=== PATIENT | female | born 1990 | race Caucasian/White ===

== ENCOUNTER 2017-05-20 08:21 | Emergency (ER) | payer BC, OTHER ==
[2017-05-20] MEDS ORDERED: Pantoprazole 40 MG Vial IVPUSH ONE (08:38)
[2017-05-20] MEDS ORDERED: Ondansetron 4 MG/2 ML SDV IVPUSH ONE (08:38)
[2017-05-20] MEDS ORDERED: Famotidine 20 MG/2 ML SDV IVPUSH ONE (08:38)
--- NOTE | 2017-05-20 08:38 | EDM.PDOC ---
ED HPI GENERAL MEDICAL PROBLEM - General Chief Complaint: Abdominal Pain Stated Complaint: right side abdominal pain Time Seen by Provider: 05/20/17 08:30 Source of Information: Reports: Patient, Old Records ([facility] EMR. No paper hospital chart available.) History Limitations: Reports: No Limitations - History of Present Illness INITIAL COMMENTS - FREE TEXT/NARRATIVE: Patient drove herself to the emergency room via private automobile for evaluation of 10/10 sharp right lower quadrant abdominal pain associated with mild very occasional brief dizziness and some anorexia with symptoms starting at about 14:00 hours yesterday afternoon. She did take 400 mg of ibuprofen at about 2 AM this morning with no other medications to this point. She did not take her morning medications with no previous similar type symptoms. The patient does have problems with chronic constipation with normal bowel movement about 2 days ago. Her last solid food intake was at supper yesterday at 6 PM with patient drinking 2 glasses of water during the night. She denies any colic , hematuria, or other UTI symptoms.The patient also denies any recent fever, cough, wheezing, dyspnea, etc.. No recent history of other abdominal pain, heartburn, nausea, diarrhea, melena, gross hematochezia, or any food intolerance , including fatty foods, etc.. Onset: Gradual Onset Date: 05/19/17 Onset Time: 14:00 Duration: Constant, Getting Worse Location: Reports: Abdomen. Denies: Head, Face, Neck, Chest, Back, Pelvis, Upper Extremity, Left, Upper Extremity, Right, Lower Extremity, Left, Lower Extremity, Right, Radiates to Quality: Reports: Sharp, Stabbing Severity: Severe Improves with: Reports: Movement Worsens with: Reports: Rest Context: Reports: Other (As above) Associated Symptoms: Reports: Loss of Appetite. Denies: Confusion, Chest Pain, Cough, Diaphoresis, Fever/Chills, Headaches, Malaise, Nausea/Vomiting, Seizure, Shortness of Breath, Syncope, Weakness Treatments LOCK TENDER: Reports: NSAIDS Right Lower Anterior Abdominal Pain Score (Numeric/FACES): 10 - Related Data Allergies Allergy/AdvReac Type Severity Reaction Status Date / Time No Known Allergies Allergy Verified 07/15/16 16:27 Home Meds: Home Meds Lisdexamfetamine [Vyvanse] 1 tab PO DAILY 07/15/16 [History] Ibuprofen 400 mg PO Q6HR 05/20/17 [History] Past Medical History HEENT History: Reports: Allergic Rhinitis. Denies: Glaucoma, Hard of Hearing, Impaired Vision, Macular Degeneration, Retinal Detachment Cardiovascular History: Reports: None. Denies: Afib, Aneurysm, Angina, Arrhythmia, Blood Clots/VTE/DVT, CAD, Heart Murmur, High Cholesterol, Hypertension, Syncope Respiratory History: Reports: None. Denies: Asthma, COPD, Intubation, Previous , PE, Pneumothorax Gastrointestinal History: Reports: Chronic Constipation. Denies: Celiac Disease , Cholelithiasis, Chronic Diarrhea, Fecal Incontinence, Gastritis, GERD, GI Bleed, Hepatitis, Hiatal Hernia, Irritable Bowel Syndrome, Jaundice, Pancreatitis Genitourinary History: Reports: Renal Calculus, Other (See Below). 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 Denies: Dysfunctional Uterine Bleeding, Endometriosis, Spontaneous : 2 Para: 2 (Full term without complications during pregnancies or deliveries) LMP (Approximate): Menstruating (LMP started 05/19/17) Musculoskeletal History: Reports: None. Denies: Amputation, Arthritis, Back Pain, Chronic, Fracture, Fibromyalgia, Gout, Neck Pain, Chronic, Osteoarthritis , RA, SLE Neurological History: Reports: None. Denies: Cerebral Aneurysms, Concussion, CVA, Headaches, Chronic, Head Trauma, Migraines, Seizure, TIA Psychiatric History: Reports: ADD, ADHD. Denies: Addiction, Anxiety, Depression , Psych Hospitalization(s), PTSD, Suicide Attempt, Suicidal Ideation Endocrine/Metabolic History: Reports: None. Denies: Diabetes, Type I, Diabetes , Type II, IDDM Hematologic History: Reports: Anemia, Iron Deficiency. Denies: Blood Transfusion(s) Immunologic History: Reports: None. Denies: AIDS, HIV, SLE Oncologic (Cancer) History: Denies: Basal Cell Carcinoma, Cervix, Hodgkin's Lymphoma, Leukemia, Lymphoma, Malignant Melanoma, Non-Hodgkin's Lymphoma, Squamous Cell Carcinoma Dermatologic History: Reports: None. Denies: Eczema, Psoriasis - Infectious Disease History Infectious Disease History: Reports: Chicken Pox. Denies: C-Difficile, Measles , Meningitis, Mononucleosis, MRSA, Mumps, Pertussis (Whooping Cough), Rubella, Scarlet Fever, Shingles, VRE - Past Surgical History Head Surgeries/Procedures: Reports: None HEENT Surgical History: Reports: Oral Surgery, Other (See Below). Denies: Adenoidectomy, Eye Surgery, Myringotomy w Tube(s), Naso-Sinus Surgery, Tonsillectomy Other HEENT Surgeries/Procedures: [place] teeth extraction 4 in 2011 Cardiovascular Surgical History: Reports: None. Denies: Varicose Respiratory Surgical History: Reports: None. Denies: Thoracentesis GI Surgical History: Reports: None. Denies: Appendectomy, Cholecystectomy, Colonoscopy, EGD, Hernia, Inguinal, Hernia Repair/Other Female Surgical History: Reports: Other (See Below). Denies: D&C, Hysterectomy, Oophorectomy, Salpingo-Oophorectomy, Tubal Ligation Other Female Surgeries/Procedures: IUD placement in about 2009 Endocrine Surgical History: Reports: None. Denies: Thyroid Biopsy Neurological Surgical History: Reports: None. Denies: C-Spine, Discectomy, Laminectomy, Lumbar Spine, Sacral Spine, Spinal Fusion, Vertebroplasty Musculoskeletal Surgical History: Reports: None. 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 Denies: Glaucoma, Macular Degeneration, Retinal Detachment Cardiac: Reports: None. Denies: Afib, Aneurysm, Arrhythmia, Blood Clots/VTE/DVT , CAD, Heart Failure, Heart Murmur, High Cholesterol, Hypertension, Syncope Respiratory: Reports: None. Denies: Asthma, COPD, PE, Pneumothorax, Sleep Apnea GI: Reports: None. Denies: Celiac Disease, Cholelithiasis, Colon Polyps, Diverticulosis, GERD, GI bleed, Inflammatory Bowel Disease, Irritable Bowel Syndrome, Pancreatitis, PUD : Reports: None. Denies: Renal Calculus, Renal Disease/Insufficiency OBGYN: Reports: None. Denies: Dysfunctional uterine bleeding, Endometriosis, Fibroids, Recurrent Spontaneous Musculoskeletal: Reports: None. Denies: Arthritis, Gout, Osteoarthritis, RA, SLE Neurological: Reports: None. Denies: Alzheimers Disease, Cerebral Aneurysms, CVA, Dementia, Migraines, MS, Parkinson's, Seizure, TIA Psychiatric: Reports: Anxiety, Depression, Other (See Below). Denies: Abuse, Victim of, ADD, ADHD, Psych Hospitalization(s), PTSD, Suicide Attempt Other Psychiatric Family History: Mother with anxiety depression disorder Endocrine/Metabolic: Denies: Diabetes, Type I, Diabetes, type II, Diabetes Mellitus, Type 3c, Hypothyroidism, IDDM Hematologic: Reports: Anemia, Other (See Below). Denies: SLE Other Hematologic Family History: Mother with iron deficiency anemia Immunologic: Reports: None. Denies: AIDS, HIV, SLE Dermatologic: Reports: Eczema, Seborrheic Dermatitis. Denies: Angiodema, Psoriasis Other Dermatologic Family History: Brother with eczema and seborrheic dermatitis Oncologic: Reports: None. Denies: Breast, Colon, Hodgkin's Lymphoma, Leukemia, Lymphoma, Non-Hodgkin's Lymphoma, Ovarian, Skin, Uterine Other Family History: Note the patient's parents are adopted with otherwise limited history - Tobacco Use Smoking Status *Q: Never Smoker Smoking Cessation Information Provided To Patient: No Second Hand Smoke Exposure: No Second Hand Smoke Education Provided: No - Caffeine Use Caffeine Use: Reports: Coffee (2 cups per day), Energy Drinks (1 can per day), Soda (2 sodas per week and). Denies: Tea - Alcohol Use Alcohol Use History: Yes Days Per Week of Alcohol Use: 2 (No previous DWIs, problems with alcohol abuse, etc.) Number of Drinks Per Day: 5 (Usually beer) Total Drinks Per Week: 10 Alcohol Use in Last Twelve Months: Yes Alcohol Use Frequency: Socially - Recreational Drug Use Recreational Drug Use: No Drug Use in Last 12 Months: No Recreational Drug Type: Denies: Amphetamines (Speed), Cocaine, Heroin, Inhalants (Glues, Solvents, Aerosols), LSD (Acid), Marijuana/Hashish, Methamphetamine, Morphine - Living Situation & Occupation Living situation: Reports: (2012, 2 children), with Family ( and 2 children) 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 Denies: Fever, Chills, Malaise, Weakness, Fatigue, Night Sweats, Diaphoresis, Weight Loss, Weight Gain HEENT: Reports: No Symptoms. Denies: Contact Lenses, Dental Pain, Ear Pain, Eye Pain, Glasses, Hearing Loss, Rhinitis, Sinus Problem, Throat Pain, Vertigo, Vision Change Respiratory: Reports: No Symptoms. Denies: Shortness of Breath, Pleuritic Chest Pain, Cough Cardiovascular: Reports: No Symptoms, Lightheadedness. Denies: Chest Pain, Blood Pressure Problem, Dyspnea on Exertion, Edema, Orthopnea, Palpitations, Syncope Endocrine: Reports: No Symptoms. Denies: Fatigue GI/Abdominal: Reports: Abdominal Pain, Anorexia, Decreased Appetite. Denies: Black Stool, Bloody Stool, Constipation, Diarrhea, Difficulty Swallowing, Distension, Flatus, Hematemesis, Hematochezia, Melena, Nausea, Stool Incontinence, Vomiting : Reports: No Symptoms. Denies: Discharge, Dysuria, Flank Pain, Frequency, Hematuria, Incontinence, Irregular Menses, Pain, Urgency, Urinary Retention Musculoskeletal: Reports: No Symptoms. Denies: Neck Pain, Shoulder Pain, Arm Pain, Back Pain, Leg Pain Skin: Reports: No Symptoms. Denies: Jaundice, Diaphoresis, Bruising, Pruritis, Rash, Wound Neurological: Reports: No Symptoms. Denies: Confusion, Dizziness, Headache, Numbness, Paresthesia, Seizure, Tingling, Weakness Psychiatric: Reports: No Symptoms. Denies: Agitation, Anxiety, Depression Hematologic/Lymphatic: Reports: No Symptoms Immunologic: Reports: No Symptoms ED EXAM, GI/ABD - Physical Exam Exam: See Below Exam Limited By: No Limitations General Appearance: Alert, WD/WN, No Apparent Distress Eyes: Bilateral: Normal Appearance (No Nystagmus), EOMI (PERRLA) Ears: Normal External Exam, Normal Canal, Hearing Grossly Normal, Normal TMs Nose: Normal Inspection, Normal Mucosa, No Blood Throat/Mouth: Normal Inspection, Normal Lips, Normal Teeth, Normal Gums, Normal Oropharynx, Normal Voice, No Airway Compromise. No: Dysphagia, Perioral Cyanosis Head: Atraumatic, Normocephalic. No: Facial Tenderness, Sinus Tenderness Neck: Normal Inspection, Supple, Non-Tender, Full Range of Motion. No: Lymphadenopathy (L), Lymphadenopathy (R), Thyromegaly Respiratory/Chest: No Respiratory Distress, Lungs Clear, Normal Breath Sounds, No Accessory Muscle Use, Chest Non-Tender. No: Pleural Rub, Retractions Cardiovascular: Normal Peripheral Pulses, Regular Rate, Rhythm, No Edema, No Gallop, No JVD, No Murmur, No Rub. No: Gallop/S3, Gallop/S4, Friction Rub GI/Abdominal Exam: Normal Bowel Sounds, No Organomegaly, No Distention, No Abnormal Bruit, No Mass, Pelvis Stable, Guarding, Rebound (Moderate rebound), Tender (Moderate to severe right lower quadrant palpation) (Female) Exam: Deferred Rectal (Female) Exam: Normal Exam, Normal Rectal Tone, Heme - Stool. No: Black Stool, Bloody Stool, Fecal Impaction, Hemorrhoids, Mass, Tenderness (No Morro space tenderness) Back Exam: Normal Inspection, Full Range of Motion. No: CVA Tenderness (L), CVA Tenderness (R) Extremities: Normal Inspection, Normal Range of Motion, Non-Tender, No Pedal Edema, Normal Capillary Refill. No: Linh's Sign Neurological: Alert, Oriented, CN II-XII Intact, Normal Cognition, Normal Gait, No Motor/Sensory Deficits Psychiatric: Normal Affect, Normal Mood Skin Exam: Warm, Dry, Intact, Normal Color, No Rash, Stud(s) (Periumbilical), Tattoo(s) (Multiple). No: Diaphoretic, Wound/Incision Lymphatic: No Adenopathy Course - Vital Signs Last Recorded V/S: Last Vital Signs Temp 36.9 C 05/20/17 10:30 Pulse 90 05/20/17 11:43 Resp 20 05/20/17 11:43 BP 98/63 05/20/17 11:43 Pulse Ox 96 05/20/17 11:43 Vital Signs - 24 hr 05/20/17 05/20/17 05/20/17 08:21 10:30 11:43 Temperature [ 36.9 C 36.9 C Temporal] Pulse, 110 H 89 90 Peripheral [ Right Pulse Oximetry] Respiratory 20 18 20 Rate Blood Pressure 135/75 110/58 L 98/63 [Right Upper Arm] O2 Sat by Pulse 100 94 L 96 Oximetry - Orders/Labs/Meds Orders: Active Orders 24 hr Category Date Time Status Communication Order [RC] ROUTINE Care 05/20/17 11:57 Active Peripheral IV Care [RC] . DIRECTED Care 05/20/17 08:38 Active Nothing Per Oral Diet [DIET] Diet 05/20/17 Breakfast Active Abdomen Pelvis w Cont [CT] Stat Exams 05/20/17 08:38 Taken CULTURE BLOOD [BC] Stat Lab 05/20/17 08:45 Received CULTURE BLOOD [BC] Stat Lab 05/20/17 08:54 Received CULTURE URINE [RM] Stat Lab 05/20/17 09:55 Received H PYLORI STOOL ANTIGEN [MREF] Urgent Lab 05/20/17 08:38 Uncollected Sodium Chloride 0.9% [Saline Flush] Med 05/20/17 08:38 Active 10 ml FLUSH ASDIRECTED PRN cefTRIAXone [Rocephin] 1 gm Med 05/20/17 08:45 Active Sodium Chloride 0.9% [Normal Saline] 100 ml IV Q12H metroNIDAZOLE/Normal Saline [Flagyl 500 MG in NS 100 ML Med 05/20/17 08:45 Active ] 500 mg Premix Bag 1 bag IV Q8H Blood Culture x2 Reflex Set [OM.PC] Urgent Oth 05/20/17 08:38 Ordered Obtain Past Medical Record [OM.PC] Urgent Oth 05/20/17 08:38 Active Peripheral IV Insertion Adult [OM.PC] Stat Oth 05/20/17 08:38 Ordered Resuscitation Status Stat Resus Stat 05/20/17 08:38 Ordered Medication Orders Ceftriaxone Sodium 1 gm/ (Sodium Chloride) 100 mls @ 200 mls/hr IV Q12H [facility] Last Admin: 05/20/17 09:30 Dose: 200 mls/hr Metronidazole 500 mg/ Premix 100 mls @ 100 mls/hr IV Q8H [facility] Last Admin: 05/20/17 09:30 Dose: 100 mls/hr Sodium Chloride (Saline Flush) 10 ml FLUSH ASDIRECTED PRN PRN Reason: Keep Vein Open Last Admin: 05/20/17 09:11 Dose: 10 ml Admin: 05/20/17 08:56 Dose: 10 ml Labs: Laboratory Tests 05/20/17 05/20/17 05/20/17 Range/Units 08:35 08:35 08:35 WBC 18.5 H (4.0-10.2) K/uL RBC 4.41 (3.77-5.09) M/uL Hgb 14.2 (11.7-15.5) g/dL Hct 41.2 (34.0-46.0) % MCV 93.4 (84.0-98.0) fL MCH 32.2 (28.2-33.3) pg MCHC 34.5 (31.7-36.0) g/dL RDW 12.0 (11.2-14.1) % Plt Count 355 H (150-350) K/uL Neut % (Auto) 78.1 (45.0-80.0) % Lymph % (Auto) 11.5 (10.0-50.0) % Weber % (Auto) 9.5 (2.0-14.0) % Eos % (Auto) 0.7 (0.0-5.0) % Baso % (Auto) 0.2 (0.0-2.0) % Neut # (Auto) 14.47 H (1.40-7.00) K/uL Lymph # (Auto) 2.13 (0.50-3.50) K/uL Weber # (Auto) 1.76 H (0.00-1.00) K/uL Eos # (Auto) 0.13 (0.00-0.50) K/uL Baso # (Auto) 0.03 (0.00-0.20) K/uL PT 10.6 (9.8-11.7) SEC INR 1.0 APTT 28.1 (22.1-29.8) SEC Sodium (136-145) mmol/L Potassium (3.5-5.1) mmol/L Chloride (98-107) mmol/L Carbon Dioxide (21.0-32.0) mmol/L BUN (7-18) mg/dL Creatinine (0.51-1.17) mg/dL Est Cr Clr Drug Dosing mL/min Estimated GFR (MDRD) mL/min Glucose (74-106) mg/dL Lactic Acid (0.4-2.0) mmol/L Uric Acid (2.6-7.2) mg/dL Calcium (8.5-10.1) mg/dL Magnesium (1.8-2.4) mg/dL Total Bilirubin (0.2-1.0) mg/dL Direct Bilirubin (0.0-0.2) mg/dL Indirect Bilirubin AST (15-37) U/L ALT (12-78) U/L Alkaline Phosphatase (46-116) IU/L Total Protein (6.4-8.2) g/dL Albumin (3.4-5.0) g/dL Amylase 48 (25-115) U/L Lipase (73-393) U/L HCG, Qual (NEGATIVE) Specimen Type Urine Color Urine Appearance Urine pH (5.0-9.0) Ur Specific [place] (1.005-1.030) Urine Protein (NEGATIVE) mg/dL Urine Glucose (UA) (NEGATIVE) mg/dL Urine Ketones (NEGATIVE) mg/dL Urine Occult Blood (NEGATIVE) Urine Nitrite (NEGATIVE) Urine Bilirubin (NEGATIVE) Urine Urobilinogen (0.2-1.0) E.U./dL Ur Leukocyte Esterase (NEGATIVE) Urine RBC /HPF Urine WBC /HPF Ur Epithelial Cells /LPF Urine Bacteria (NONE TO FEW) /HPF 05/20/17 05/20/17 05/20/17 Range/Units 08:35 08:35 08:35 WBC (4.0-10.2) K/uL RBC (3.77-5.09) M/uL Hgb (11.7-15.5) g/dL Hct (34.0-46.0) % MCV (84.0-98.0) fL MCH (28.2-33.3) pg MCHC (31.7-36.0) g/dL RDW (11.2-14.1) % Plt Count (150-350) K/uL Neut % (Auto) (45.0-80.0) % Lymph % (Auto) (10.0-50.0) % Weber % (Auto) (2.0-14.0) % Eos % (Auto) (0.0-5.0) % Baso % (Auto) (0.0-2.0) % Neut # (Auto) (1.40-7.00) K/uL Lymph # (Auto) (0.50-3.50) K/uL Weber # (Auto) (0.00-1.00) K/uL Eos # (Auto) (0.00-0.50) K/uL Baso # (Auto) (0.00-0.20) K/uL PT (9.8-11.7) SEC INR APTT (22.1-29.8) SEC Sodium 135 L (136-145) mmol/L Potassium 3.4 L (3.5-5.1) mmol/L Chloride 99 (98-107) mmol/L Carbon Dioxide 26.2 (21.0-32.0) mmol/L BUN 11 (7-18) mg/dL Creatinine 0.56 (0.51-1.17) mg/dL Est Cr Clr Drug Dosing 149.34 mL/min Estimated GFR (MDRD) > 60 mL/min Glucose 86 (74-106) mg/dL Lactic Acid 0.8 (0.4-2.0) mmol/L Uric Acid 4.0 (2.6-7.2) mg/dL Calcium 9.2 (8.5-10.1) mg/dL Magnesium 1.6 L (1.8-2.4) mg/dL Total Bilirubin 1.4 H (0.2-1.0) mg/dL Direct Bilirubin (0.0-0.2) mg/dL Indirect Bilirubin AST 11 L (15-37) U/L ALT 24 (12-78) U/L Alkaline Phosphatase 73 (46-116) IU/L Total Protein 7.7 (6.4-8.2) g/dL Albumin 4.1 (3.4-5.0) g/dL Amylase (25-115) U/L Lipase 79 (73-393) U/L HCG, Qual Negative (NEGATIVE) Specimen Type Urine Color Urine Appearance Urine pH (5.0-9.0) Ur Specific [place] (1.005-1.030) Urine Protein (NEGATIVE) mg/dL Urine Glucose (UA) (NEGATIVE) mg/dL Urine Ketones (NEGATIVE) mg/dL Urine Occult Blood (NEGATIVE) Urine Nitrite (NEGATIVE) Urine Bilirubin (NEGATIVE) Urine Urobilinogen (0.2-1.0) E.U./dL Ur Leukocyte Esterase (NEGATIVE) Urine RBC /HPF Urine WBC /HPF Ur Epithelial Cells /LPF Urine Bacteria (NONE TO FEW) /HPF 05/20/17 05/20/17 Range/Units 08:35 09:55 WBC (4.0-10.2) K/uL RBC (3.77-5.09) M/uL Hgb (11.7-15.5) g/dL Hct (34.0-46.0) % MCV (84.0-98.0) fL MCH (28.2-33.3) pg MCHC (31.7-36.0) g/dL RDW (11.2-14.1) % Plt Count (150-350) K/uL Neut % (Auto) (45.0-80.0) % Lymph % (Auto) (10.0-50.0) % Weber % (Auto) (2.0-14.0) % Eos % (Auto) (0.0-5.0) % Baso % (Auto) (0.0-2.0) % Neut # (Auto) (1.40-7.00) K/uL Lymph # (Auto) (0.50-3.50) K/uL Weber # (Auto) (0.00-1.00) K/uL Eos # (Auto) (0.00-0.50) K/uL Baso # (Auto) (0.00-0.20) K/uL PT (9.8-11.7) SEC INR APTT (22.1-29.8) SEC Sodium (136-145) mmol/L Potassium (3.5-5.1) mmol/L Chloride (98-107) mmol/L Carbon Dioxide (21.0-32.0) mmol/L BUN (7-18) mg/dL Creatinine (0.51-1.17) mg/dL Est Cr Clr Drug Dosing mL/min Estimated GFR (MDRD) mL/min Glucose (74-106) mg/dL Lactic Acid (0.4-2.0) mmol/L Uric Acid (2.6-7.2) mg/dL Calcium (8.5-10.1) mg/dL Magnesium (1.8-2.4) mg/dL Total Bilirubin 1.4 H (0.2-1.0) mg/dL Direct Bilirubin 0.3 H (0.0-0.2) mg/dL Indirect Bilirubin 1.1 AST (15-37) U/L ALT (12-78) U/L Alkaline Phosphatase (46-116) IU/L Total Protein (6.4-8.2) g/dL Albumin (3.4-5.0) g/dL Amylase (25-115) U/L Lipase (73-393) U/L HCG, Qual (NEGATIVE) Specimen Type Urinvoid Urine Color Yellow Urine Appearance Slightly cloudy Urine pH 6.5 (5.0-9.0) Ur Specific [place] <= 1.005 (1.005-1.030) Urine Protein Negative (NEGATIVE) mg/dL Urine Glucose (UA) Negative (NEGATIVE) mg/dL Urine Ketones 15 H (NEGATIVE) mg/dL Urine Occult Blood Trace-intact H (NEGATIVE) Urine Nitrite Negative (NEGATIVE) Urine Bilirubin Negative (NEGATIVE) Urine Urobilinogen 0.2 (0.2-1.0) E.U./dL Ur Leukocyte Esterase Negative (NEGATIVE) Urine RBC 0-5 /HPF Urine WBC 0-5 /HPF Ur Epithelial Cells Moderate H /LPF Urine Bacteria Moderate H (NONE TO FEW) /HPF Blood cultures 2 collected and urine specimen set up for culture and sensitivity Meds: Medications Generic Name Dose Route Start Last Admin Trade Name Freq PRN Reason Stop Dose Admin Ceftriaxone Sodium 1 gm/ 100 mls @ 200 mls/hr 05/20/17 08:45 05/20/17 09:30 Sodium Chloride IV 200 mls/hr Q12H [facility] Administration Metronidazole 500 mg/ Premix 100 mls @ 100 mls/hr 05/20/17 08:45 05/20/17 09: 30 IV 100 mls/hr Q8H [facility] Administration Sodium Chloride 10 ml 05/20/17 08:38 05/20/17 09:11 Saline Flush FLUSH 10 ml ASDIRECTED PRN Administration Keep Vein Open Discontinued Medications Generic Name Dose Route Start Last Admin Trade Name Freq PRN Reason Stop Dose Admin Famotidine 40 mg 05/20/17 08:38 05/20/17 09:11 Pepcid IVPUSH 05/20/17 08:39 40 mg ONETIME ONE Administration Fentanyl 50 mcg 05/20/17 08:39 05/20/17 08:53 Sublimaze IVPUSH 05/20/17 08:40 50 mcg ONETIME ONE Administration Fentanyl 50 mcg 05/20/17 11:23 05/20/17 11:37 Sublimaze IVPUSH 05/20/17 11:24 50 mcg ONETIME ONE Administration Iopamidol 100 ml 05/20/17 10:00 05/20/17 10:57 Isovue-300 (61%) IVPUSH 05/20/17 10:01 100 ml ONETIME ONE Administration Ondansetron HCl 4 mg 05/20/17 08:38 05/20/17 08:55 Zofran IVPUSH 05/20/17 08:39 4 mg ONETIME ONE Administration Pantoprazole Sodium 40 mg 05/20/17 08:38 05/20/17 09:11 Protonix Iv IVPUSH 05/20/17 08:39 40 mg ONETIME ONE Administration - Radiology Interpretation Free Text/Narrative:: Telephone consultation at 11:30 a.m. with the radiology department at [facility] with preliminary verbal report of CT scan of the abdomen and pelvis with both oral and IV contrast. Positive findings for acute appendicitis without perforation or abscess. Incidental 3 cm right ovarian cyst noted. In addition, incidental finding of note, i.e., IUD is present in her peritoneal cavity with apparent previous distant uterine wall perforation CT Results Date: 05/20/17 CT Results Time: 11:30 Departure - Departure Time of Disposition: 12:10 Disposition: DC/Tfer to Acute Hospital 02 Condition: Good Clinical Impression: Peritonitis, Hyperbilirubinemia, Hyponatremia, Hypokalemia Abdominal pain Qualifiers: Abdominal location: right lower quadrant Qualified Code(s): R10.31 - Right lower quadrant pain Appendicitis Qualifiers: Appendicitis type: acute appendicitis Acute appendicitis type: with generalized peritonitis Qualified Code(s): K35.2 - Acute appendicitis with generalized peritonitis - Discharge Information Instructions: Appendicitis, [id number] Referrals: Sasha Salgado PA-C [Primary Care Provider] - Forms: ED Department Discharge, Interfacility Transfer EMTALA Additional Instructions: 1. Have your 's grandfather drive you to for direct admission for planned appendectomy as discussed 2. STRICT nothing to eat or drink until otherwise directed by [facility] - Problem List & Annotations (1) Appendicitis SNOMED Code(s): 59926660 Code(s): K37 - UNSPECIFIED APPENDICITIS Status: Acute Priority: High Current Visit: Yes Onset Date: 05/20/17 Annotation/Comment:: Positive CT scan for acute appendicitis as above. Note that IV Rocephin and IV Flagyl were given in the emergency room with additional high-dose IV Pepcid and IV Protonix given as GI prophylaxis. Telephone consultation at 11:[address] Cuba , general surgeon at [facility], who does accept the patient for direct admission for probable appendectomy. Patient will be kept nothing by mouth. No further treatment recommendations given. Note private automobile transfer by her 's grandfather with saline lock to be left in place. Overall good response to low-dose IV fentanyl with one additional dose given given prior to transfer. Qualifiers: Appendicitis type: acute appendicitis Acute appendicitis type: with generalized peritonitis Qualified Code(s): K35.2 - Acute appendicitis with generalized peritonitis; K35.0 - Acute appendicitis with generalized peritonitis (2) Peritonitis SNOMED Code(s): 49323360 Code(s): K65.9 - PERITONITIS, UNSPECIFIED Status: Acute Priority: High Current Visit: Yes Onset Date: 05/20/17 Annotation/Comment:: Positive peritoneal signs as above. IV antibiotics as above. (3) Abdominal pain SNOMED Code(s): 58097940 Code(s): R10.9 - UNSPECIFIED ABDOMINAL PAIN Status: Acute Priority: High Current Visit: Yes Onset Date: 05/19/17 Annotation/Comment:: Note abdominal pain secondary to acute appendicitis with secondary peritonitis as above. In addition, note incidental finding of IUD in her peritoneal cavity, which is likely not an etiology of her current discomfort. She has had previous nonspecific abdominal discomfort in the past with IUD to be removed at time of appendectomy Qualifiers: Abdominal location: right lower quadrant Qualified Code(s): R10.31 - Right lower quadrant pain (4) Hyperbilirubinemia SNOMED Code(s): 31718398 Code(s): E80.6 - OTHER DISORDERS OF BILIRUBIN METABOLISM Status: Acute Priority: Medium Current Visit: Yes Onset Date: 05/20/17 Annotation/ Comment:: Mildly elevated direct bilirubin. Observe for now. Further workup depending on her clinical course (5) Hypokalemia SNOMED Code(s): 48551347 Code(s): E87.6 - HYPOKALEMIA Status: Acute Priority: Medium Current Visit: Yes Onset Date: 05/20/17 Annotation/Comment:: Mild hypokalemia with no recent diarrhea or emesis. IV fluids by accepting providers. (6) Hyponatremia SNOMED Code(s): 39522449 Code(s): E87.1 - HYPO-OSMOLALITY AND HYPONATREMIA Status: Acute Priority : Medium Current Visit: Yes Onset Date: 05/20/17 Annotation/Comment:: As above - Problem List Review Problem List Initiated/Reviewed/Updated: Yes - My Orders Last 24 Hours: My Active Orders 05/20/17 08:38 Peripheral IV Care [RC] . DIRECTED Abdomen Pelvis w Cont [CT] Stat H PYLORI STOOL ANTIGEN [MREF] Urgent Sodium Chloride 0.9% [Saline Flush] 10 ml FLUSH ASDIRECTED PRN Blood Culture x2 Reflex Set [OM.PC] Urgent Obtain Past Medical Record [OM.PC] Urgent Peripheral IV Insertion Adult [OM.PC] Stat Resuscitation Status Stat 05/20/17 08:45 CULTURE BLOOD [BC] Stat cefTRIAXone [Rocephin] 1 gm Sodium Chloride 0.9% [Normal Saline] 100 ml IV Q12H metroNIDAZOLE/Normal Saline [Flagyl 500 MG in NS 100 ML] 500 mg Premix Bag 1 bag IV Q8H 05/20/17 08:54 CULTURE BLOOD [BC] Stat 05/20/17 09:55 CULTURE URINE [RM] Stat 05/20/17 11:57 Communication Order [RC] ROUTINE 05/20/17 Breakfast Nothing Per Oral Diet [DIET] - Assessment/Plan Last 24 Hours: My Active Orders 05/20/17 08:38 Peripheral IV Care [RC] . DIRECTED Abdomen Pelvis w Cont [CT] Stat H PYLORI STOOL ANTIGEN [MREF] Urgent Sodium Chloride 0.9% [Saline Flush] 10 ml FLUSH ASDIRECTED PRN Blood Culture x2 Reflex Set [OM.PC] Urgent Obtain Past Medical Record [OM.PC] Urgent Peripheral IV Insertion Adult [OM.PC] Stat Resuscitation Status Stat 05/20/17 08:45 CULTURE BLOOD [BC] Stat cefTRIAXone [Rocephin] 1 gm Sodium Chloride 0.9% [Normal Saline] 100 ml IV Q12H metroNIDAZOLE/Normal Saline [Flagyl 500 MG in NS 100 ML] 500 mg Premix Bag 1 bag IV Q8H 05/20/17 08:54 CULTURE BLOOD [BC] Stat 05/20/17 09:55 CULTURE URINE [RM] Stat 05/20/17 11:57 Communication Order [RC] ROUTINE 05/20/17 Breakfast Nothing Per Oral Diet [DIET] Assessment:: As above Plan: As above. Extensive precautions were given to the patient, who is in agreement with the treatment plan. See Patient Instructions for further treatment and plan.
[2017-05-20] MEDS ORDERED: fentaNYL 100 MCG/2 ML SDV IVPUSH ONE ×2 (08:39→11:23)
[2017-05-20] MEDS ORDERED: metroNIDAZOLE/Normal Saline 500 MG in Premix Bag 1 BAG IV SCH (08:45)
[2017-05-20] MEDS ORDERED: cefTRIAXone 1 GM in Sodium Chloride 0.9% 100 ML IV SCH (08:45)
[2017-05-20] MEDS: Sodium Chloride 0.9% 10 ML Syringe FLUSH PRN ×2 (08:56→09:11)
[2017-05-20 09:00] LABS: CHLORIDE,CL 99 mmol/L (98-107); SODIUM,NA 135 mmol/L (136-145)
[2017-05-20] MEDS: Iopamidol 612 MG/ML 100 ML Bottle IVPUSH ONE ×2 (10:56→10:57)
[2017-05-20 11:43] VITALS: BP 98/63
== END 2017-05-20 12:10 ==
LOC: LL.ED 08:21
DX: K35.2 Acute appendicitis with generalized peritonitis (principal); E80.6 Other disorders of bilirubin metabolism; E87.6 Hypokalemia; E87.1 Hypo-osmolality and hyponatremia; Z79.899 Other long term (current) drug therapy
CPT/HCPCS: 36415; 74177; 80053; 81001; 82150; 82247; 82248; 82272; 83605; 83690; 83735; 84550; 84703; 85025; 85610; 85730; 87040; 87086; 96365; 96367; 96375; 96376; 99285; C9113; J0696; J2405; J3010; J7050; Q9967; S0028

== ENCOUNTER 2017-07-29 21:57 | Emergency (ER) | payer BC ==
[2017-07-29 22:04] VITALS: BP 116/56
[2017-07-29] MEDS: Bacitracin/Neomycin/Polymyxin B Oint 0.9 GM U/D Packet TOP ONE (22:14)
--- NOTE | 2017-07-29 22:42 | EDM.PDOC ---
ED HPI GENERAL MEDICAL PROBLEM - General Chief Complaint: Laceration Stated Complaint: laceration Time Seen by Provider: 07/29/17 22:19 Source of Information: Reports: Patient History Limitations: Reports: No Limitations - History of Present Illness INITIAL COMMENTS - FREE TEXT/NARRATIVE: Patient presents with laceration of left lateral palm after getting cut on a piece of glass sticking through a garbage bag while she took the garbage out. Denies loss of function of hand/fingers. Bleeding controlled. No numbness or tingling of injured area. Denies other injuries. Tetanus is UTD. - Related Data Allergies Allergy/AdvReac Type Severity Reaction Status Date / Time No Known Allergies Allergy Verified 07/29/17 21:59 Home Meds: Home Meds Lisdexamfetamine [Vyvanse] 1 tab PO DAILY 07/15/16 [History] Ibuprofen 400 mg PO Q6HR PRN 05/20/17 [History] Past Medical History HEENT History: Reports: Allergic Rhinitis Cardiovascular History: Reports: None Respiratory History: Reports: None Gastrointestinal History: Reports: Chronic Constipation Genitourinary History: Reports: Renal Calculus, Other (See Below) Other Genitourinary History: Right-sided Sided urolithiasis in 2009 with spontaneous passage [employer] History: Reports: Musculoskeletal History: Reports: None Neurological History: Reports: None Psychiatric History: Reports: ADD, ADHD Endocrine/Metabolic History: Reports: None Hematologic History: Reports: Anemia, Iron Deficiency Immunologic History: Reports: None Oncologic (Cancer) History: Reports: None Dermatologic History: Reports: None - Infectious Disease History Infectious Disease History: Reports: Chicken Pox - Past Surgical History Head Surgeries/Procedures: Reports: None HEENT Surgical History: Reports: Oral Surgery, Other (See Below) Other HEENT Surgeries/Procedures: [place] teeth extraction 4 in 2011 Cardiovascular Surgical History: Reports: None Respiratory Surgical History: Reports: None GI Surgical History: Reports: Appendectomy, Hernia, Abdominal, Other (See Below) Other GI Surgeries/Procedures: umbilical hernia repair Female Surgical History: Reports: Other (See Below) Other Female Surgeries/Procedures: IUD placement in about 2009 with periforation - no curren IUD as of 2018 Endocrine Surgical History: Reports: None Neurological Surgical History: Reports: None Musculoskeletal Surgical History: Reports: None Oncologic Surgical History: Reports: None Dermatological Surgical History: Reports: Plastic Surgical Reconstruction/Repair , Other (See Below) - Past Imaging History Past Imaging History: Reports: Ultrasound (Pelvic ultrasound in about 2010) Social & Family History - Family History HEENT: Reports: None Cardiac: Reports: None Respiratory: Reports: None GI: Reports: None : Reports: None OBGYN: Reports: None Musculoskeletal: Reports: None Neurological: Reports: None Psychiatric: Reports: Anxiety, Depression, Other (See Below) Other Psychiatric Family History: Mother with anxiety depression disorder Hematologic: Reports: Anemia, Other (See Below) Other Hematologic Family History: Mother with iron deficiency anemia Immunologic: Reports: None Dermatologic: Reports: Eczema, Seborrheic Dermatitis Other Dermatologic Family History: Brother with eczema and seborrheic dermatitis Oncologic: Reports: None - Tobacco Use Smoking Status *Q: Never Smoker Second Hand Smoke Exposure: No - Caffeine Use Caffeine Use: Reports: Coffee (2 cups per day), Energy Drinks (1 can per day), Soda (2 sodas per week and). 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[employer]) ED ROS GENERAL - Review of Systems Review Of Systems: See Below ED EXAM, SKIN/RASH Exam: See Below Exam Limited By: No Limitations General Appearance: Alert, WD/WN, Anxious Eye Exam: Bilateral Eye: EOMI Head: Atraumatic, Normocephalic Respiratory/Chest: No Respiratory Distress Extremities: Normal Range of Motion, Normal Capillary Refill Neurological: Alert, Oriented, Normal Cognition, Normal Gait, Normal Reflexes, No Motor/Sensory Deficits Psychiatric: Anxious Skin: Warm, Dry Location, Skin: Palms (laceration left palm) ED SKIN PROCEDURES - Laceration/Wound Repair Left Ventral Hand Lac/Wound length In cm: 1.5 Appearance: Subcutaneous, Clean Distal NVT: Neuro & Vascular Intact, No Tendon Injury Anesthetic Type: Local Local Anesthesia - Lidocaine (Xylocaine): 1% Plain Local Anesthetic Volume: 3cc Skin Prep: Providone-Iodine (Betadine) Exploration/Debridement/Repair: Wound Explored, In a Bloodless Field, Explored to Base Suture Size: 4-0 # of Sutures: 4 Suture Type: Nylon, Interrupted Drain Placement: No Sterile Dressing Applied: Nurse Tetanus Status Addressed: Yes Complications: No Course - Vital Signs Last Recorded V/S: Last Vital Signs Temp 37.4 C 07/29/17 21:59 Pulse 90 07/29/17 21:59 Resp 18 07/29/17 21:59 BP 116/56 L 07/29/17 21:59 Pulse Ox 100 07/29/17 21:59 - Orders/Labs/Meds Meds: Medications Discontinued Medications Generic Name Dose Route Start Last Admin Trade Name Freq PRN Reason Stop Dose Admin Lidocaine HCl 5 ml 07/29/17 21:58 07/29/17 22:14 Xylocaine-Mpf 1% INJECT 07/29/17 21:59 5 ml ONETIME ONE Administration Neomycin/Polymyxin/Bacitracin 1 each 07/29/17 21:58 07/29/17 22:14 Triple Antibiotic Oint TOP 07/29/17 21:59 1 each ONETIME ONE Administration - Re-Assessments/Exams Free Text/Narrative Re-Assessment/Exam: 07/29/17 22:46 laceration repaired. Wound care discussed. Precautions reviewed prior to discharge. Departure - Departure Time of Disposition: 22:40 Disposition: Home, Self-Care 01 Condition: Good Clinical Impression: Laceration of left hand Qualifiers: Encounter type: initial encounter Foreign body presence: without foreign body Qualified Code(s): S61.412A - Laceration without foreign body of left hand, initial encounter - Discharge Information Instructions: Laceration Care, Adult, Sutured Wound Care, [id number] Referrals: Sasha Salgado PA-C [Primary Care Provider] - Forms: ED Department Discharge Additional Instructions: Keep wound clean and dry while healing. Apply topical antibiotic ointment several times a day as directed. Follow up in clinic for suture removal in one week. Make appointment that fits your schedule. Follow up otherwise as needed if you have any problems.
== END 2017-07-29 22:45 | disposition home or self-care (01) ==
LOC: LL.ED 21:57
DX: S61.412A Laceration without foreign body of left hand, initial encounter (principal); Z79.899 Other long term (current) drug therapy; W25.XXXA Contact with sharp glass, initial encounter
CPT/HCPCS: 12001; 99282